=== PATIENT | female | born 1990 | race Caucasian/White ===

== ENCOUNTER 2020-11-25 01:27 | Emergency (ER) | payer OTHER, MEDICAID, SELFPAY ==
--- NOTE | 2020-11-25 01:45 | PC.NURSE ---
Went to get pt from waiting room. Informed by bomb technician and it security architect that the patient just ran out. Walked to the doors and looked outside. Could not see anyone in the immediate area. Informed bomb technician to please call if pt returns.
[2020-11-25 01:58] VITALS: BP 132/73; PULSE 105; RESP 16; TEMP 36.4; O2SAT 100; BMI 32.5
--- NOTE | 2020-11-25 02:26 | ED_ITS ---
HPI - Skin/Abscess/Foreign Bdy General Chief complaint: Skin/Abscess/Foreign Body Stated complaint: Abscess Time Seen by Provider: 11/25/20 02:24 Source: patient Mode of arrival: Ambulatory Limitations: no limitations History of Present Illness HPI narrative: This is a 30-year-old female who states she has had an abscess on her left breast that developed about 7 days ago. Patient states it has been progressively growing in size she states she did not appreciate how large it was until this evening. Patient denies fevers but has not felt well. She denies any nausea or vomiting she denies any shortness of breath. She has pain in the left breast but denies elsewhere. She has had a couple red spots in the past and had had an abscess in her mouth once before but denies any other prior skin issues. She denies any other medical issues. She states that penicillin sulfa do not do well but she has had clinda and responded well in the past. She states she does use tobacco. Occasional alcohol. She denies any recreational drugs other than marijuana. She denies any , states she is not and has not been lactating or . She has not had infections in this area in the past. Related Data Previous Rx's Medication Instructions Recorded clindamycin HCl 300 mg PO Q6H #40 cap 11/25/20 Allergies Allergy/AdvReac Type Severity Reaction Status Date / Time Penicillins Allergy Verified 11/25/20 02:03 Review of Systems Review of Systems ROS Unobtainable: All systems reviewed & are unremarkable except as noted in HPI and below Patient History Social History Smoking Status: Current every day smoker Smoking Status: Current every day smoker tobacco type: cigarettes alcohol intake frequency: holidays/special occasions only Substance Use Type: marijuana Exam Narrative Exam Narrative: GENERAL: Alert and oriented x three, well-nourished female in mild to moderate distress. HEENT: Head normocephalic, atraumatic, EOMI, pupils reactive, face symmetric, moist mucous membranes NECK: Supple, full range of motion CARDIOVASCULAR: Regular rate and rhythm without murmurs, rubs or gallops. RESPIRATORY: Breath sounds equal bilaterally, no wheezes rales or rhonchi. ABDOMEN: Soft, nontender. Normoactive bowel sounds all 4 quadrants. No guarding or rebound, rigidity, no mass : No CVA tenderness EXTREMITIES: Normal range of motion, no clubbing or edema. Neurovascularly intact NEUROLOGICAL: Cranial nerves II through XII grossly intact. Moving all extremities SKIN: Warm, dry, no petechiae, patient's left breast is about double the size compared to the right, there is erythema extending about 8 cm in circumference with a area of fluctuance at the 7 o'clock position that is 3-4 cm with a small amount of drainage that appears serosanguineous. Initial Vital Signs Initial Vital Signs: Vital Signs Temperature 97.6 F 11/25/20 01:58 Pulse Rate 105 H 11/25/20 01:58 Respiratory Rate 16 11/25/20 01:58 Blood Pressure 132/73 11/25/20 01:58 Pulse Oximetry 100 11/25/20 01:58 Course Orders Ordered: ED Orders 11/25/20 02:37 US breast LT limited Stat 11/25/20 02:40 Blood Culture Stat 11/25/20 03:00 Basic Metabolic Panel Stat Complete Blood Count AUTO DIFF Stat Lactate (Lactic Acid) Stat Test Serum,Qual Stat Discontinued Medications Clindamycin Phosphate (Cleocin) 900 mg in 50 mls @ 50 mls/hr IV NOW ONE Stop: 11/25/20 03:33 Last Infusion: 11/25/20 04:54 Dose: 0 mls/hr Documented by: Admin: 11/25/20 03:20 Dose: 50 mls/hr Documented by: ANDRADE Sodium Chloride (Normal Saline 0.9%) 1,986 mls @ 662 mls/hr 30 ml/kg infuse over 3 hr (1986 ml) IV NOW ONE Stop: 11/25/20 05:38 Last Infusion: 11/25/20 05:47 Dose: 0 mls/hr Documented by: Admin: 11/25/20 03:19 Dose: 662 mls/hr Documented by: ANDRADE Ketorolac Tromethamine (Ketorolac 60 Mg/2 Ml Vial) 30 mg IV NOW ONE Stop: 11/25/20 03:09 Last Admin: 11/25/20 03:18 Dose: 30 mg Documented by: ANDRADE Vital Signs Vital signs: Vital Signs - 8 hr 11/25/20 01:58 11/25/20 05:23 Temperature 97.6 F Pulse Rate 105 H 87 Respiratory Rate 16 17 Blood Pressure 132/73 117/59 L Pulse Oximetry 100 100 MDM - Skin/Abscess/Foreign Bdy Lab Data Attestation: I reviewed the patient's lab results. Result diagrams: 11/25/20 03:00 11/25/20 03:00 Labs: Lab Results 11/25/20 11/25/20 11/25/20 Range/Units 03:00 03:00 03:00 WBC 10.4 (4.5-11.0) X10^3/uL RBC 4.61 (4.0-5.2) X10^6/uL Hgb 13.5 (12.0-16.0) g/dL Hct 40.2 (36-46) % MCV 87.3 (80-100) fL MCH 29.3 (26-34) PG MCHC 33.5 (30-36) % RDW 13.2 (11.6-14.8) % Plt Count 330 (150-400) X10^3/uL Neut % (Auto) 63.7 (50-75) % Lymph % (Auto) 29.8 (25-40) % [place] % (Auto) 6.2 (3-14) % Eos % (Auto) 0.0 L (2-4) % Baso % (Auto) 0.3 (0-2) % Neut # (Auto) 6600 (4953-0735) /uL Lymph # (Auto) 3100 (4137-3007) /uL [place] # (Auto) 600 (0-900) /uL Eos # (Auto) 0 (0-450) /uL Baso # (Auto) 0 (0-100) /uL Sodium 138 (137-145) mmol/L Potassium 4.8 (3.4-5.1) mmol/L Chloride 100 (98-107) mmol/L Carbon Dioxide 32 (22-32) mmol/L BUN 15 (7-17) mg/dL Creatinine 0.63 (0.52-1.04) mg/dL Estimated GFR > 60.0 (>60) mL/min BUN/Creatinine Ratio 23.8 H (6-22) Glucose 89 (70-100) mg/dL Lactate 1.7 (0.7-2.1) mmol/L Calcium 9.3 (8.4-10.2) mg/dL Serum , Qual (Negative) 11/25/20 Range/Units 03:00 WBC (4.5-11.0) X10^3/uL RBC (4.0-5.2) X10^6/uL Hgb (12.0-16.0) g/dL Hct (36-46) % MCV (80-100) fL MCH (26-34) PG MCHC (30-36) % RDW (11.6-14.8) % Plt Count (150-400) X10^3/uL Neut % (Auto) (50-75) % Lymph % (Auto) (25-40) % [place] % (Auto) (3-14) % Eos % (Auto) (2-4) % Baso % (Auto) (0-2) % Neut # (Auto) (5017-6346) /uL Lymph # (Auto) (9306-9232) /uL [place] # (Auto) (0-900) /uL Eos # (Auto) (0-450) /uL Baso # (Auto) (0-100) /uL Sodium (137-145) mmol/L Potassium (3.4-5.1) mmol/L Chloride (98-107) mmol/L Carbon Dioxide (22-32) mmol/L BUN (7-17) mg/dL Creatinine (0.52-1.04) mg/dL Estimated GFR (>60) mL/min BUN/Creatinine Ratio (6-22) Glucose (70-100) mg/dL Lactate (0.7-2.1) mmol/L Calcium (8.4-10.2) mg/dL Serum , Qual Negative (Negative) Imaging Data US, breast: Radiologist's Impression: Heterogeneous breast tissue at 7:00 a.m. posit ion nonspecific with no focal fluid collections seen as yet. MDM Narrative Medical decision making narrative: This is a 30-year-old female who is not lactating, or per patient. She developed swelling, pain and what appears to be an abscess on the left breast over the past 7 days. Does appear to be draining a small amount of serosanguineous fluid. Patient is significantly uncomfortable. She is tachycardic upon arrival. Her labs do not show any major abnormalities, ultrasound shows heterogeneous breast tissue the 7 o'clock position but nonspecific with no focal fluid collection seen. Patient does have a significant cellulitis and swelling of her left breast and was offered observation. Patient defers and was told that she can return at any time. I did ask her return in 24 hours for recheck. We did discuss that if her symptoms do not completely resolve and she does returned reactive they do she may need mammography to evaluate why this is occurred if there is no clear reason. Discharge Plan Departure Patient Disposition: Left Against Medical Advice Clinical Impression: Cellulitis of breast Instructions: DI for Cellulitis -- Adult Activity Restrictions/Additional Instructions: Follow up in 24 hours for recheck, return to the ER for re-evaluation. I do recommend that you be kept for observation in the hospital and IV antibiotics around the clock. As you have elected to leave today please note that you can return at any time. Take antibiotics until they are completely gone. You have received 1 dose of IV antibiotics here in the department. Wound Care: Keep wound(s) clean and dry. Wash daily with soap and water only. Use warm compresses to the draining area 4 times daily. Do not use over the counter products (alcohol or peroxide)on the wounds unless instructed by a physician. Return if fever greater than 100.4 Fahrenheit, increased swelling, increasing pain or worsening symptoms such as increased discharge or spreading redness. Return for worsening pain, new chest pain, shortness of breath, passing out, persistent vomiting or other new or concerning symptoms. Prescriptions: New clindamycin HCl 300 mg capsule 300 mg PO Q6H Qty: 40 RF: 0 Stand Alone Forms: Against Medical Advice
--- NOTE | 2020-11-25 02:37 | DI.US.S_ITS ---
PROCEDURE: US BREAST LT LIMITED COMPARISON: None. INDICATIONS: left breast abscess FINDINGS: Scanning is performed at the area of clinical concern. On these images, diffuse edema with heterogeneity can be seen, yet without a focal fluid collection to suggest a drainable abscess. IMPRESSION: Negative for abscess. Note: No significant discrepancy from the preliminary report. Dictated by: Rashaun Avalos M.D. on 11/25/2020 at 8:26 Approved by: Rashaun Avalos M.D. on 11/25/2020 at 8:33
[2020-11-25 03:11] LABS: Add Manual Diff / Slide Review NO; Basophils Absolute Auto 0 /uL (0-100); Basophils Percent Auto 0.3 % (0-2); Eosinophils Absolute Auto 0 /uL (0-450); Hematocrit 40.2 % (36-46); Hemoglobin 13.5 g/dL (12.0-16.0); Lymphocytes Absolute Auto 3100 /uL (1100-4500); Lymphocytes Percent Auto 29.8 % (25-40); Mean Corpuscular HGB Conc 33.5 % (30-36); Mean Corpuscular Hemoglobin 29.3 PG (26-34); Mean Corpuscular Volume 87.3 fL (80-100); Monocytes Absolute Auto 600 /uL (0-900); Monocytes Percent Auto 6.2 % (3-14); Neutrophils Absolute Auto 6600 /uL (1500-7000); Neutrophils Percent Auto 63.7 % (50-75); Platelet Count 330 X10^3/uL (150-400); Red Blood Cell Count 4.61 X10^6/uL (4.0-5.2); Red Cell Distribution Width 13.2 % (11.6-14.8); White Blood Cell Count 10.4 X10^3/uL (4.5-11.0)
[2020-11-25] MEDS: KETOROLAC 60 MG/2 ML VIAL 30 MG IV (03:18)
[2020-11-25] MEDS: SODIUM CHLORIDE 0.9% 1,986 ML 662 ML IV (03:19)
[2020-11-25] MEDS: CLINDAMYCIN 900 MG/50 ML PIGGYBACK 50 MG IV (03:20)
[2020-11-25 03:26] LABS: Lactate (Lactic Acid) 1.7 mmol/L (0.7-2.1)
[2020-11-25 03:27] LABS: BUN Creatinine Ratio 23.8 (6-22); Blood Urea Nitrogen 15 mg/dL (7-17); Calcium 9.3 mg/dL (8.4-10.2); Carbon Dioxide 32 mmol/L (22-32); Chloride 100 mmol/L (98-107); Estimated Glomerular Filt Rate > 60.0 mL/min (>60); Glucose 89 mg/dL (70-100); HEMOLYSIS 123 (0-50); Potassium 4.8 mmol/L (3.4-5.1); Sodium 138 mmol/L (137-145)
[2020-11-25 05:22] LABS: Pregnancy Test Serum,Qual Negative (Negative)
[2020-11-25 05:23] VITALS: BP 117/59; PULSE 87; RESP 17; O2SAT 100
== END 2020-11-25 05:23 | disposition left against medical advice (07) ==
PROVIDERS: Emergency Provider Emergency Medicine
DX: N61.0 Mastitis without abscess (principal)
CPT/HCPCS: 36415; 76642; 80048; 83605; 84703; 85025; 87040; 96361; 96365; 96366; 96375; 99281; 99284; J1885